=== PATIENT | female | born 1980 | race Caucasian/White ===

== ENCOUNTER 2017-12-31 07:38 | Inpatient (IN) | payer BC ==
[2017-12-31] VITALS (43 sets, daily range): BP systolic 91–141; BP diastolic 50–91; PULSE 62–115; TEMP 97.3–98.1
[~2017-12-31] VITALS: Ht 157.5 cm; Wt 85.9 kg
[~2017-12-31 07:38] MED LIST: BACTRIM DS 8001 TAB PO; BCP TD; CEPHALEXIN500 M1 PO; LORTAB 5/500 501 TAB PO; NORCO 325 MG-51 TAB PO
[2017-12-31] MEDS ORDERED: SLOW FE142 MG PO (08:07)
[2017-12-31] MEDS ORDERED: PRENATAL (08:07)
[2017-12-31] MEDS ORDERED: ROBITUSSIN100 MG/5 M PO (08:08)
[2017-12-31 09:13] LABS: BASO % 0.4 % (0.0-2.0); EOS # 0.1 (0.0-0.7); EOS % 0.8 % (0-4.0); GRAN # 8.3 (1.4-6.5); GRAN % 76.2 % (42.2-75.2); HEMATOCRIT 35.7 % (37.0-47.0); HEMOGLOBIN 11.8 g/dl (12.5-16.0); LYMPH # 1.4 (1.2-3.4); LYMPH % 13.2 % (20.0-51.0); MEAN CELL VOLUME 79 fl (80.0-100.0); MEAN CORPUSCULAR HEMOGLOBIN 26 pg (27.0-31.0); MEAN CORPUSCULAR HGB CONC 33 g/dl (33.0-37.0); MEAN PLATELET VOLUME 10.5 fl (7.4-10.4); MONO % 8.7 % (1.7-9.3); PLATELET COUNT 223 K/mm3 (130-400); RED BLOOD COUNT 4.51 M/mm3 (4.10-5.30); REDCELL DISTRIBUTION WIDTH-CV 15.9 % (11.5-14.5)
[2018-01-01 00:45] VITALS: BP 114/74; PULSE 64; TEMP 97.4
[2018-01-01 04:30] VITALS: BP 103/55; PULSE 71; TEMP 97.5
[2018-01-01 07:26] VITALS: BP 116/73; PULSE 66; TEMP 97.6
[2018-01-01 13:00] VITALS: BP 116/86; PULSE 79; TEMP 97.7
[2018-01-01 16:45] VITALS: BP 116/71; PULSE 70; TEMP 98
[2018-01-01 20:10] VITALS: BP 109/65; PULSE 77; TEMP 97.4
[2018-01-02 08:10] VITALS: BP 107/69; PULSE 66; TEMP 97.3
[2018-01-02] MEDS ORDERED: PERCOCET 325 MG1 TA2 PO (08:57)
[2018-01-02] MEDS ORDERED: IBU600 MG PO (08:57)
== END 2018-01-02 16:45 | disposition home or self-care (01) | DRG 765 ==
LOC: LDRO 07:38 → LDR 08:16 → OB 17:15
PROVIDERS: Obstetrics & Gynecology
PROC: 10D00Z1 Extraction of Products of Conception, Low, Open Approach (ICD-10-PCS; principal; 2017-12-31)
DX: O64.0XX0 Obstructed labor due to incomplete rotation of fetal head, not applicable or unspecified (principal); O36.5130 Maternal care for known or suspected placental insufficiency, third trimester, not applicable or unspecified; O76 Abnormality in fetal heart rate and rhythm complicating labor and delivery; Z3A.37 37 weeks gestation of pregnancy; Z37.0 Single live birth
CPT/HCPCS: J0690; J1885; J2270; J2370; J2400; J2405; J2590; J7120

== ENCOUNTER 2020-02-09 23:40 | Inpatient (IN) | payer MEDICAID ==
[~2020-02-09] VITALS: Ht 157.5 cm; Wt 87.7 kg
[2020-02-09 23:28] VITALS: BP 136/78; PULSE 71; TEMP 97.7
--- NOTE | 2020-02-09 23:30 | NUR ---
G3L1 at 39.4 weeks gestation to LDR3 with c/o SROM at 2300. Patient reports clear fluid with some blood, she reports good movement. She is GBS- and is planning on a repeat . Patient changed into gown and wedged to left side in bed. EFMs explained and applied. FHR 110 bpm with acceleration x1 noted. CTX q2-4 minutes, patient breathing through them. VSS. SVE 1/75/-3 with moderate amount of bloody fluid noted. Plan of care reviewed.
[~2020-02-09 23:40] MED LIST changes: +IBU600 MG PO; +NATURAL IRON65 MG; +PERCOCET 325 MG1 TA2 PO; +PRENATAL; +ROBITUSSIN100 MG/5 M PO; +SLOW FE142 MG PO
[2020-02-09 23:45] VITALS: BP 136/78; PULSE 71; TEMP 97.7
[2020-02-09 23:59] LABS: BASO % 0.5 % (0.0-2.0); EOS # 0.1 (0.0-0.7); EOS % 1.3 % (0-4.0); GRAN # 5.6 (1.4-6.5); GRAN % 66.3 % (42.2-75.2); HEMOGLOBIN 11.2 g/dl (12.5-16.0); LYMPH # 1.7 (1.2-3.4); LYMPH % 19.8 % (20.0-51.0); MEAN CELL VOLUME 79 fl (80.0-100.0); MEAN CORPUSCULAR HEMOGLOBIN 25 pg (27.0-31.0); MEAN CORPUSCULAR HGB CONC 32 g/dl (33.0-37.0); MEAN PLATELET VOLUME 10.9 fl (7.4-10.4); MONO % 11.5 % (1.7-9.3); PLATELET COUNT 211 K/mm3 (130-400); RED BLOOD COUNT 4.47 M/mm3 (4.10-5.30); REDCELL DISTRIBUTION WIDTH-CV 18.5 % (11.5-14.5)
[2020-02-10] VITALS (19 sets, daily range): BP systolic 99–131; BP diastolic 48–81; PULSE 60–86; TEMP 97.7–98.2
[2020-02-10 00:02] LABS: HEMATOCRIT 35.1 % (37.0-47.0)
[2020-02-11] MEDS ORDERED: PERCOCET 325 MG1 TA2 PO (08:45)
[2020-02-11] MEDS ORDERED: IBU600 MG PO (08:45)
[2020-02-11 09:40] VITALS: BP 118/74; PULSE 84; TEMP 98.1
[2020-02-11 15:35] VITALS: BP 131/76; PULSE 77; TEMP 98.1
[2020-02-11 20:00] VITALS: BP 146/86; PULSE 91; TEMP 98
[2020-02-12 07:00] VITALS: BP 132/78; PULSE 76; TEMP 98.1
== END 2020-02-12 12:40 | disposition home or self-care (01) | DRG 788 ==
LOC: LDR 23:40 → OB 23:40 → LDR 02-12 11:55 → OB 02-12 12:40
PROVIDERS: ADMIT Obstetrics & Gynecology
PROC: 10D00Z1 Extraction of Products of Conception, Low, Open Approach (ICD-10-PCS; principal; 2020-02-09)
DX: O34.211 Maternal care for low transverse scar from previous cesarean delivery (principal); Z3A.39 39 weeks gestation of pregnancy; Z37.0 Single live birth; O99.214 Obesity complicating childbirth; E66.9 Obesity, unspecified
CPT/HCPCS: J7120

== ENCOUNTER 2022-02-09 22:54 | Emergency (ER) | payer OTHER, MEDICAID ==
[2022-02-09 23:09] VITALS: TEMP 98.1
[2022-02-09 23:38] LABS: BASO % 0.5 % (0.0-2.0); EOS % 0.4 % (0.0-4.0); GRAN # 6.1 K/mm3 (1.4-6.5); GRAN % 80.4 % (42.2-75.2); HEMATOCRIT 38.2 % (37.0-47.0); HEMOGLOBIN 12.5 g/dl (12.5-16.0); LYMPH % 13.1 % (20.0-51.0); MEAN CELL VOLUME 80 fl (80.0-100.0); MEAN CORPUSCULAR HEMOGLOBIN 26 pg (27-31); MEAN CORPUSCULAR HGB CONC 33 g/dl (33.0-37.0); MEAN PLATELET VOLUME 10.7 fl (7.4-10.4); MONO # 0.4 K/mm3 (0.1-0.6); MONO % 5.3 % (1.7-9.3); PLATELET COUNT 222 K/mm3 (130-400); RED BLOOD COUNT 4.77 M/mm3 (4.10-5.30); REDCELL DISTRIBUTION WIDTH-CV 13.6 % (11.5-14.5)
[2022-02-09 23:55] LABS: ALANINE AMINOTRANSFERASE 27 U/L (0-55); ALKALINE PHOSPHATASE 81 U/L (40-150); ANION GAP 14 mmol/L (7-16); AST,SGOT 18 U/L (5-34); BLOOD UREA NITROGEN 15 mg/dL (7-19); C-REACTIVE PROTEIN 0.24 mg/dL (0.00-0.50); CALCIUM 8.6 mg/dL (8.4-10.2); CARBON DIOXIDE 18 mmol/L (22-29); CHLORIDE 107 mmol/L (98-107); CREATINE KINASE 61 U/L (29-168); CREATININE, serum 0.59 mg/dL (0.57-1.11); GLUCOSE 106 mg/dL (70-99); POTASSIUM 3.7 mmol/L (3.5-4.5); SODIUM 139 mmol/L (136-145); TOTAL PROTEIN 7.9 gm/dL (6.2-8.1)
[2022-02-10 00:08] LABS: TROPONIN-I < 0.010 ng/mL (0.00-0.033)
[2022-02-10 00:30] VITALS: BP 131/74; PULSE 76
== END 2022-02-10 01:30 | disposition home or self-care (01) ==
LOC: COL.ER 22:54
PROVIDERS: Emergency Medicine
DX: R55 Syncope and collapse (principal); R11.2 Nausea with vomiting, unspecified; Z87.891 Personal history of nicotine dependence
CPT/HCPCS: J2405; J7030